=== PATIENT | male | born 1965 | race Caucasian/White ===

== ENCOUNTER → 2023-06-14 | Outpatient (CLI) | payer SELFPAY ==
[2023-06-14 08:09] LABS: ALB/GLOB Ratio 0.9 RATIO (0.9-2.4); AST(SGOT) 13 U/L (15-37); Alanine Aminotransfer ALT/SGPT 27 U/L (16-61); Albumin, Serum 3.5 g/dL (3.2-5.0); Alkaline Phosphatase 61 U/L (45-117); Anion Gap 5 (5-15); BUN 17 mg/dL (7-18); BUN/Creat Ratio 18.1 RATIO (10-20); Chloride 105 mmol/L (98-107); Cholesterol 222 mg/dL (200); Creatinine, Serum 0.94 mg/dL (0.70-1.30); EST Glomerular Filtration Rate 87 mL/min (>60); Est Glom Filt Rate - Afr Amer 105 mL/min (>60); Globulin 3.9 g/dL (2.2-4.2); Glucose 111 mg/dL (74-106); High Density Lipoprotein 42 mg/dL; PSA,Total - Annual Screen 1.62 ng/mL (0.00-4.00); Protein, Total 7.4 g/dL (6.4-8.2); Sodium Level 138 mmol/L (136-145); Triglycerides 184 mg/dL; Very Low Density Lipoprotein 37 mg/dL (5-40)
[2023-06-14 10:18] LABS: Microalbumin,Random Urine 5.4 mg/L (NO RANGE EST.); Microalbumin:Creatinine Ratio 4.7 mg/g CRE (<30 mg/g CRE)
== END | disposition home or self-care (01) ==
PROVIDERS: PCP Nurse Practitioner Family; Referring Provider Nurse Practitioner Family; Visit Provider Nurse Practitioner Family
DX: I10 Essential (primary) hypertension (principal); Z13.220 Encounter for screening for lipoid disorders; Z12.5 Encounter for screening for malignant neoplasm of prostate
CPT/HCPCS: 36415; 80053; 80061; 82043; 82570; 84153; G0103

== ENCOUNTER 2025-01-12 05:47 | Day surgery (SDC) | payer SELFPAY, OTHER ==
[2025-01-12] VITALS (11 sets, daily range): BP systolic 121–131; BP diastolic 67–77; PULSE 69–87; RESP 12–18; TEMP 36.6–37.1; O2SAT 94–99; BMI 22.4
[2025-01-12] MEDS: Lactated Ringers 1,000 ML 15 ML IV ×2 (06:49→09:36)
[2025-01-12] MEDS: Midazolam 2 MG/2 ML Syringe IV (07:36)
[2025-01-12] MEDS: Lidocaine 1% (5 ml sdv) 5 ML Vial IV (07:40)
[2025-01-12] MEDS: Cefazolin 1 GM/5 ML Vial 2 GM IV (07:41)
[2025-01-12] MEDS: fentaNYL 100 MCG/2 ML Ampul IV (07:57)
== END 2025-01-12 14:32 | disposition home or self-care (01) ==
LOC: SDC 05:49 → AC 06:16
PROVIDERS: PCP Nurse Practitioner Family; Referring Provider Surgery; Visit Provider Surgery
PROC: (CPT 49650; principal; 2025-01-12 07:10)
DX: K40.90 Unilateral inguinal hernia, without obstruction or gangrene, not specified as recurrent (principal); I10 Essential (primary) hypertension; E78.00 Pure hypercholesterolemia, unspecified; Z79.899 Other long term (current) drug therapy
CPT/HCPCS: 49650; S2900; 00830; 93005; C1781; J2405